=== PATIENT | female | born 1965 | race Caucasian/White ===

== ENCOUNTER 2017-08-22 09:40 | Emergency (ER) | payer OTHER ==
[~2017-08-22] VITALS: Ht 157.5 cm; Wt 45.4 kg
== END 2017-08-22 18:14 | disposition designated cancer center or children's hospital (05) ==
LOC: ER 09:40
DX: Q28.3 Other malformations of cerebral vessels (principal); R20.2 Paresthesia of skin; R51 Headache
CPT/HCPCS: 70450; 70552; A9579; 93005

== ENCOUNTER 2024-11-20 09:39 | Inpatient (IN) | payer OTHER ==
[~2024-11-20] VITALS: Ht 162.6 cm; Wt 54.4 kg
[2024-11-20] MEDS ORDERED: LIPITOR40 M1 (09:55)
[2024-11-20] MEDS ORDERED: REMERON15 M1 (09:55)
[2024-11-20] MEDS ORDERED: LEVALBUTEROL HCL 1.25 MG/3 ML SOLUTION IH ONE (10:08)
[2024-11-20] MEDS ORDERED: MAGNESIUM SULFATE 10,000 MG/20 ML VIAL IV ONE (10:15)
[2024-11-20] MEDS ORDERED: 0.9 % SODIUM CHLORIDE 1,000 ML IV SCH ×2 (10:15→18:00)
[2024-11-20] MEDS ORDERED: LEVALBUTEROL HCL 1.25 MG/3 ML SOLUTION IH SCH ×2 (10:15→17:55)
[2024-11-20] MEDS ORDERED: METHYLPREDNISOLONE SOD SUCC 125 MG VIAL IV ONE (10:15)
[2024-11-20] MEDS ORDERED: METHYLPREDNISOLONE SOD SUCC 125 MG VIAL ONE (10:24)
[2024-11-20 10:34] LABS: BASO % 0.8 % (0.1-1.2); EOS # 0.51 (0.04-0.54); EOS % 7.2 % (0.7-7.0); LYMPH # 1.60 (1.18-3.74); LYMPH % 22.4 % (19.3-53.1); MEAN PLATELET VOLUME 9.60 fl (9.4-12.4); MONO # 0.27 (0.24-0.82); MONO % 3.8 % (4.7-12.5); NEUT # 4.68 (1.56-6.13); NEUT % 65.7 % (34.0-71.1); RED CELL DISTRIBUTION WIDTH 13.4 % (11.6-14.4)
[2024-11-20] MEDS ORDERED: MAGNESIUM SULFATE IN WATER 2 GM/50 ML PIGGYBAG IV ONE (10:45)
[2024-11-20 10:56] LABS: ALT/SGPT 35.0 U/L (12-78); AST/SGOT 31.0 U/L (15-37); BILIRUBIN TOTAL 0.37 mg/dL (0.3-1.2); BUN CREA RATIO 15.0 (7.0-25.0); CREATININE SERUM 0.78 mg/dL (0.55-1.02); GFR 75.59; GLOBULINA 3.5 G/DL (2.4-3.5); GLUCOSE FASTING 112.0 mg/dL (65-100); OSMOLALITY SERUM 293.0 MOSM/KG (275-295)
[2024-11-20 10:58] LABS: COVID-19 AG NEGATIVE (NEGATIVE)
[2024-11-20 12:27] LABS: URINE APPEARANCE Clear; URINE BILIRRUBIN Negative (NEGATIVE); URINE BLOOD Moderate; URINE COLOR Yellow; URINE GLUCOSE Negative (NEGATIVE); URINE KETONE Negative (NEGATIVE); URINE LEUKOCYTE Small; URINE NITRATE Negative; URINE PROTEIN Negative (NEGATIVE); URINE UROBILINOGEN 0.2 E.U./dl
[2024-11-20 12:31] LABS: URINE BACTERIA 63.6 uL (0.0-1933); URINE EPITHELIAL CELLS 1.8 uL (0.0-38.8); URINE RBC 47.5 uL (0.0-20.8); URINE WBC 15.5 uL (0.0-23.2)
[2024-11-20 12:41] LABS: URINE CAST 0.29 uL (0.0-1.40)
[2024-11-20 14:13] LABS: ABG PH 7.389 (7.35-7.45); BICARBONATE 24.5 mmol/l (23-25)
[2024-11-20] MEDS ORDERED: IPRATROPIUM BROMIDE 0.5 MG/2.5 ML AMPUL.NEB IH ONE (14:15)
[2024-11-20] MEDS ORDERED: ALBUTEROL SULFATE 3 ML/2.5 MG AMPUL.NEB IH ONE (14:16)
[2024-11-20] MEDS ORDERED: IPRATROPIUM/ALBUTEROL SULFATE 3 ML AMPUL.NEB IH SCH (14:16)
[2024-11-20 14:35] LABS: ABG PO2 56.7 mmHg (80-100)
[2024-11-20 14:36] LABS: o2 32 %
[2024-11-20 14:37] LABS: ABG PH 7.418 (7.35-7.45)
[2024-11-20 14:38] LABS: ABG PO2 57.3 mmHg (80-100)
[2024-11-20 14:39] LABS: BICARBONATE 22.5 mmol/l (23-25)
[2024-11-20 14:40] LABS: o2 21 %
[2024-11-20] MEDS ORDERED: IPRATROPIUM BROMIDE 0.5 MG/2.5 ML AMPUL.NEB IH SCH (17:55)
[2024-11-20] MEDS ORDERED: MONTELUKAST SODIUM 10 MG TABLET PO SCH (17:56)
[2024-11-20] MEDS ORDERED: METHYLPREDNISOLONE SOD SUCC 40 MG VIAL IV SCH (17:56)
[2024-11-20] MEDS ORDERED: levoFLOXacin IN DEXTROSE 5 % 150 ML IV SCH (17:57)
[2024-11-20] MEDS ORDERED: ACETAMINOPHEN 500 MG GEL..CAP PO PRN (18:00)
[2024-11-20] MEDS ORDERED: MONTELUKAST SODIUM 10 MG TABLET PO ONE (18:10)
[2024-11-20] MEDS ORDERED: METHYLPREDNISOLONE SOD SUCC 40 MG VIAL ONE (18:11)
[2024-11-20] MEDS ORDERED: GUAIFEN/DEXTROMETHORPHAN/PE 10 ML BLIST.PACK PO ONE (18:11)
[2024-11-20 18:25] VITALS: BP 130/80
[2024-11-20] MEDS ORDERED: ACETAMINOPHEN 500 MG GEL..CAP PO ONE (18:37)
[2024-11-20 19:06] LABS: INR 1.01
[2024-11-20] MEDS ORDERED: GUAIFEN/DEXTROMETHORPHAN/PE 10 ML BLIST.PACK PO SCH (20:00)
[2024-11-20] MEDS ORDERED: TEMAZEPAM 15 MG CAPSULE PO SCH (21:00)
[2024-11-21] MEDS ORDERED: PIPERACILLIN/TAZOBACTAM SODIUM 3.375 GM VIAL IV ONE
[2024-11-21] MEDS ORDERED: METHYLPREDNISOLONE SOD SUCC 40 MG VIAL ONE (03:18)
[2024-11-21] MEDS ORDERED: GUAIFEN/DEXTROMETHORPHAN/PE 10 ML BLIST.PACK PO ONE (03:18)
[2024-11-21] MEDS ORDERED: LEVALBUTEROL HCL 1.25 MG/3 ML SOLUTION IH ONE (07:59)
[2024-11-21] MEDS ORDERED: IPRATROPIUM BROMIDE 0.5 MG/2.5 ML AMPUL.NEB IH ONE (08:00)
[2024-11-21 08:11] VITALS: BP 98/60; O2SAT 98
[2024-11-21] MEDS ORDERED: FAMOTIDINE/PF 20 MG in 0.9 % SODIUM CHLORIDE 8 ML IV PUSH SCH (09:00)
[2024-11-21] MEDS ORDERED: SERTRALINE HCL 100 MG TABLET PO SCH (09:00)
[2024-11-21] MEDS ORDERED: ENOXAPARIN SODIUM 40 MG/0.4 ML SYRINGE SUBCUTANEO SCH (09:00)
[2024-11-21 15:22] VITALS: BP 125/81; O2SAT 97
[2024-11-21] MEDS ORDERED: levoFLOXacin IN DEXTROSE 5 % 150 ML IV SCH (17:00)
[2024-11-21 18:17] VITALS: BP 140/85; O2SAT 100
[2024-11-21] MEDS ORDERED: BENZONATATE 100 MG CAPSULE PO SCH (20:29)
[2024-11-21] MEDS ORDERED: FLUTICASONE PROPIONATE 50 MCG SPRAY NASAL SCH (21:00)
[2024-11-21] MEDS ORDERED: LORATADINE 10 MG TABLET PO SCH (21:00)
[2024-11-21 21:57] VITALS: O2SAT 97
[2024-11-22] VITALS (9 sets, daily range): BP systolic 100–135; BP diastolic 60–80; O2SAT 90–99
[2024-11-22] MEDS ORDERED: LEVALBUTEROL HCL 1.25 MG/3 ML SOLUTION IH SCH (06:00)
[2024-11-22] MEDS ORDERED: IPRATROPIUM BROMIDE 0.5 MG/2.5 ML AMPUL.NEB IH SCH (06:00)
[2024-11-22 07:59] LABS: ALT/SGPT 26 U/L (12-78); AST/SGOT 19 U/L (15-37); BILIRUBIN TOTAL 0.20 mg/dL (0.3-1.2); BUN CREA RATIO 26 (7.0-25.0); CREATININE SERUM 0.76 mg/dL (0.55-1.02); GFR 77.89; GLOBULINA 2.4 G/DL (2.4-3.5); GLUCOSE FASTING 135 mg/dL (65-100); LDH 129 U/L (84-246); OSMOLALITY SERUM 290 MOSM/KG (275-295)
[2024-11-22 08:05] LABS: BASO % 0.1 % (0.1-1.2); EOS # 0.00 (0.04-0.54); EOS % 0.0 % (0.7-7.0); LYMPH # 0.85 (1.18-3.74); LYMPH % 6.0 % (19.3-53.1); MEAN PLATELET VOLUME 10.30 fl (9.4-12.4); MONO # 0.21 (0.24-0.82); MONO % 1.5 % (4.7-12.5); NEUT # 12.99 (1.56-6.13); NEUT % 91.8 % (34.0-71.1); RED CELL DISTRIBUTION WIDTH 13.8 % (11.6-14.4)
[2024-11-22] MEDS ORDERED: FAMOTIDINE/PF 20 MG/2 ML VIAL ONE (08:23)
[2024-11-22 10:12] LABS: MYCOPLASMA PNEUMONIAE IGM REACTIVE (NO REACTIVE)
[2024-11-22] MEDS ORDERED: IRON FUM,PS/FOLIC/BCOMP,C NO.9 1 CAP CAPSULE PO NR (10:45)
[2024-11-22] MEDS ORDERED: LACTOBACILLUS ACIDOPHILUS 1 CAP CAP PO SCH (17:00)
[2024-11-22] MEDS ORDERED: METHYLPREDNISOLONE SOD SUCC 40 MG VIAL IV SCH (17:00)
[2024-11-22] MEDS ORDERED: FLUTICASONE PROPIONATE 50 MCG SPRAY NASAL SCH (21:00)
[2024-11-23] VITALS (9 sets, daily range): BP systolic 102–121; BP diastolic 58–74; O2SAT 91–99
[2024-11-23] MEDS ORDERED: IRON FUM,PS/FOLIC/BCOMP,C NO.9 1 CAP CAPSULE PO SCH (09:00)
[2024-11-23] MEDS ORDERED: CLONAZEPAM 0.5 MG TABLET PO PRN (12:00)
[2024-11-24] VITALS (9 sets, daily range): BP systolic 110–114; BP diastolic 69–74; O2SAT 85–98
[2024-11-24] MEDS ORDERED: CLONAZEPAM 0.5 MG TABLET PO PRN (11:27)
[2024-11-24] MEDS ORDERED: CLONAZEPAM 0.5 MG TABLET PO ONE (11:30)
[2024-11-25] VITALS (7 sets, daily range): BP systolic 102–111; BP diastolic 64–73; O2SAT 91–96
[2024-11-25 06:06] LABS: BASO % 0.0 % (0.1-1.2); EOS # 0.00 (0.04-0.54); EOS % 0.0 % (0.7-7.0); LYMPH # 0.79 (1.18-3.74); LYMPH % 11.4 % (19.3-53.1); MEAN PLATELET VOLUME 10.90 fl (9.4-12.4); MONO # 0.21 (0.24-0.82); MONO % 3.0 % (4.7-12.5); NEUT # 5.93 (1.56-6.13); NEUT % 85.3 % (34.0-71.1); RED CELL DISTRIBUTION WIDTH 13.3 % (11.6-14.4)
[2024-11-25 07:02] LABS: BUN CREA RATIO 27.0 (7.0-25.0); CREATININE SERUM 0.71 mg/dL (0.55-1.02); GFR 84.26; GLUCOSE FASTING 131.0 mg/dL (65-100); OSMOLALITY SERUM 287.0 MOSM/KG (275-295)
[2024-11-25] MEDS ORDERED: IPRATROPIUM BROMIDE 0.5 MG/2.5 ML AMPUL.NEB IH SCH (21:00)
[2024-11-25] MEDS ORDERED: METHYLPREDNISOLONE SOD SUCC 40 MG VIAL IV SCH (21:00)
[2024-11-25] MEDS ORDERED: LEVALBUTEROL HCL 1.25 MG/3 ML SOLUTION IH SCH (21:00)
[2024-11-26 01:25] VITALS: O2SAT 94
[2024-11-26 02:14] VITALS: BP 115/68; O2SAT 97
[2024-11-26 05:35] VITALS: O2SAT 94
[2024-11-26 07:00] VITALS: BP 129/82; O2SAT 94
[2024-11-26 10:42] VITALS: O2SAT 95
[2024-11-26 14:07] VITALS: O2SAT 95
== END 2024-11-26 16:03 | disposition home or self-care (01) | DRG 194 ==
LOC: ER 09:39 → MEDJ 18:05 → SEC-K 18:05 → MEDJ 11-21 11:05
PROVIDERS: General Practice; Internal Medicine; Internal Medicine Infectious Disease; ADMIT Internal Medicine; ATTEND Internal Medicine
PROC: BW24ZZZ Computerized Tomography (CT Scan) of Chest and Abdomen (ICD-10-PCS; 2024-11-20)
PROC: 3E0F7GC Introduction of Other Therapeutic Substance into Respiratory Tract, Via Natural or Artificial Opening (ICD-10-PCS; 2024-11-20)
PROC: 4A12X4Z Monitoring of Cardiac Electrical Activity, External Approach (ICD-10-PCS; principal; 2024-11-21)
DX: J18.9 Pneumonia, unspecified organism (principal); J45.901 Unspecified asthma with (acute) exacerbation; A49.3 Mycoplasma infection, unspecified site; E78.5 Hyperlipidemia, unspecified; F32.9 Major depressive disorder, single episode, unspecified; J44.9 Chronic obstructive pulmonary disease, unspecified

== ENCOUNTER 2025-03-09 03:30 | Inpatient (IN) | payer OTHER ==
[~2025-03-09] VITALS: Ht 154.9 cm; Wt 44.9 kg
[~2025-03-09 03:30] MED LIST: LIPITOR40 M1; REMERON15 M1
[2025-03-09] MEDS ORDERED: EPINEPHRINE HCL/PF 1 MG/ML AMPUL ONE (03:43)
[2025-03-09] MEDS ORDERED: IPRATROPIUM BROMIDE 0.5 MG/2.5 ML AMPUL.NEB IH ONE ×5 (03:46→20:45)
[2025-03-09] MEDS ORDERED: MAGNESIUM SULFATE 50% 5,000 MG/10 ML VIAL ONE (03:47)
[2025-03-09] MEDS ORDERED: METHYLPREDNISOLONE SOD SUCC 125 MG VIAL ONE ×3 (03:47→23:11)
[2025-03-09] MEDS ORDERED: ALBUTEROL SULFATE 3 ML/2.5 MG AMPUL.NEB IH ONE ×5 (03:47→20:45)
--- NOTE | 2025-03-09 03:49 | NUR ---
PACIENTE ALERTA Y ORIENTADA X3. REFIERE VENIR POR DIFICULTAD AL RESPIRAR. PACIENTE [place] EN ORACIONES CORTAS Y CON DIFICULTAD. PACIENTE SATURANDO AL 80% AL MOMENTO DEL TRIAGE. SE UBICA PACIENTE A MONITOR CARDIACO Y OXIMETRIA DE PULSO CONTINUA EN AREA DE CRITICO. SE REALIZA EKG Y SE PRESENTA A DR GARCIA.
[2025-03-09] MEDS ORDERED: METHYLPREDNISOLONE SOD SUCC 125 MG VIAL IV STA (03:51)
[2025-03-09] MEDS ORDERED: MAGNESIUM SULFATE IN WATER 4GM/50ML PIGGYBAG IV STA (03:52)
[2025-03-09] MEDS ORDERED: 0.9 % SODIUM CHLORIDE 1,000 ML IV STA (03:53)
[2025-03-09] MEDS ORDERED: EPINEphrine 10 ML DISP.SYRIN IJ STA (03:57)
[2025-03-09] MEDS ORDERED: ALBUTEROL SULFATE 3 ML/2.5 MG AMPUL.NEB IH SCH ×3 (04:00→09:00)
[2025-03-09] MEDS ORDERED: IPRATROPIUM BROMIDE 0.5 MG/2.5 ML AMPUL.NEB IH SCH ×2 (04:00→09:00)
--- NOTE | 2025-03-09 04:02 | NUR ---
INMEDIATAMENTE SE CANALIZA PACIENTE X2 EN BRAZO DERECHO # 18 SE MARILY EN S/L. SE ADMINISTRA MEDICAMENTOS WILLEM ORDEN MEDICA. SE SELAM MUESTRAS DE LABORATORIOS Y SE ENVIAN. PENDIENTE A PLACA Y ABGS. SE NOTIFICAN TERAPIAS CON CARACTER DE URGENCIA A MR. CURIEL.
[2025-03-09 04:28] LABS: BASO % 0.5 % (0.1-1.2); EOS # 0.81 (0.04-0.54); EOS % 6.7 % (0.7-7.0); LYMPH # 4.88 (1.18-3.74); LYMPH % 40.2 % (19.3-53.1); MEAN PLATELET VOLUME 10.60 fl (9.4-12.4); MONO # 0.69 (0.24-0.82); MONO % 5.7 % (4.7-12.5); NEUT # 5.68 (1.56-6.13); NEUT % 46.7 % (34.0-71.1); RED CELL DISTRIBUTION WIDTH 13.1 % (11.6-14.4)
[2025-03-09 04:57] LABS: ALT/SGPT 19.0 U/L (12-78); AST/SGOT 36.0 U/L (15-37); BILIRUBIN TOTAL 0.33 mg/dL (0.3-1.2); BUN CREA RATIO 13.0 (7.0-25.0); CREATININE SERUM 0.71 mg/dL (0.55-1.02); GFR 84.26; GLOBULINA 3.1 G/DL (2.4-3.5); GLUCOSE FASTING 124.0 mg/dL (65-100); OSMOLALITY SERUM 291.0 MOSM/KG (275-295)
[2025-03-09 05:46] LABS: COVID-19 AG NEGATIVE (NEGATIVE)
--- NOTE | 2025-03-09 07:57 | NUR ---
SE RECIBE PACIENTE EN ICU#2 CAMA #2. SE OFRECE DANIE PARA EVALUAR CONDICION. PACIENTE ALERTA Y ORIENTADA X 3. PTE CONECTADA A MONITOR CARDIACO CON SATURO- METRIA Y VENTURY MASK. DOS VENOPUNCIONES PATENTES EN BRAZO DERECHO, AREAS LIBRES DE EDEMA Y/O ERITEMA BAJANDO .9NSS A 50 MLS/HR POR MAQUINA DE IV PUMP. ORINANDO DE FORMA ESPONTANEA, PARA LO CUAL SE ASISTE Y AL MOMENTO LE BAJA SATURACION A 86% LA CUAL TARDA 5MIN EN VOLVER A 96%. SE MIDEN Y DOCUMENTAN S/V BARANDAS ELEVADAS POR SANDRA SEGURIDAD. SE MONITOREA POR CAMBIOS SIGNIFICATIVOS.
[2025-03-09] MEDS ORDERED: METHYLPREDNISOLONE SOD SUCC 125 MG VIAL IV SCH (13:00)
--- NOTE | 2025-03-09 15:28 | NUR ---
SE RECIBE PACIENTE FEMENINA DE 59YRS EN CAMA CON BARANDAS ELEVADAS Y TIMBRE ACCESIBLE. AL MOMENTO PACIENTEN EN ICU-2 CAMA #2, EN ESPERA DE CONSULTA CON IM DR TRINIDAD. PACIENTE ALERTA Y ORIENTADA X3 SE OBSERVA CON VENTURY MASK AL 40% TOLERANDO AL MOMENTO, CABECERA A 45 GRADOS. SE MIDEN S/V Y SE DOCUMENTAN, LOS MISMOS SE OBSERVAN DENTRO DE PARAMETROS ESTABLES. PACIENTE CANALIZADA EN RT ARM X2 #18 POR DONDE BAJAN 1000 ML DE 0.9NSS A KVO Y OTRA CANALIZACION EN SALINE LOCK. AL MOMENTO AMBAS CANALIZACIONES SABINA DE EDEMA O SIGNOS DE INFILTRACION. PACIENTE AL MOMENTO SE OBSERVA DORMIDA, RESPONDE A ESTIMULOS VERBALES, REFIERE NO DOLOR. SE MANTIENE EN MONITOREO POR CAMBIOS SIGNIFICATIVOS. AL MOMENTO PACIENTE CONECTADA A MONITOR CARDIACO Y IV FLUIDS BAJANDO POR IV PUMP.
[2025-03-09 18:00] VITALS: BP 111/68; O2SAT 100
[2025-03-09] MEDS ORDERED: ACETAMINOPHEN 325 MG TABLET PO PRN (18:00)
[2025-03-09] MEDS ORDERED: METHYLPREDNISOLONE SOD SUCC 40 MG VIAL IV SCH (18:00)
[2025-03-09] MEDS ORDERED: GUAIFENESIN 100 MG/5 ML BLIST.PACK PO SCH (18:00)
[2025-03-09] MEDS ORDERED: ONDANSETRON HCL 4 MG in 0.9 % SODIUM CHLORIDE 50 ML IV PRN (18:00)
[2025-03-09] MEDS ORDERED: GUAIFENESIN 200 MG/10 ML BLIST.PACK PO ONE ×2 (19:11→23:11)
[2025-03-09] MEDS ORDERED: ACETAMINOPHEN 325 MG TABLET PO ONE (19:11)
[2025-03-09 19:20] VITALS: BP 111/68; BP 139/89; O2SAT 93
[2025-03-09] MEDS ORDERED: RESTORIL30 M1 PO (22:08)
[2025-03-09] MEDS ORDERED: CLONAZEPAM0.5 MG PO (22:10)
[2025-03-09 23:25] VITALS: BP 128/70; O2SAT 99
[2025-03-10 02:00] VITALS: BP 97/58; O2SAT 97
[2025-03-10 07:26] VITALS: BP 110/52; O2SAT 95
[2025-03-10] MEDS ORDERED: METHYLPREDNISOLONE SOD SUCC 125 MG VIAL IV SCH ×2 (09:00→12:00)
[2025-03-10] MEDS ORDERED: LORATADINE 10 MG TABLET PO SCH (09:00)
[2025-03-10] MEDS ORDERED: CEFTRIAXONE SODIUM 2,000 MG in 0.9 % SODIUM CHLORIDE 100 ML IV SCH (09:00)
[2025-03-10] MEDS ORDERED: SERTRALINE HCL 100 MG TABLET PO SCH (09:00)
[2025-03-10] MEDS ORDERED: AZITHROMYCIN 500 MG VIAL IV SCH (09:00)
[2025-03-10] MEDS ORDERED: METHYLPREDNISOLONE SOD SUCC 40 MG VIAL IV SCH ×3 (11:29)
[2025-03-10] MEDS ORDERED: PANTOPRAZOLE SODIUM 40 MG/VIAL VIAL IV SCH (12:00)
[2025-03-10] MEDS ORDERED: IPRATROPIUM/ALBUTEROL SULFATE 3 ML AMPUL.NEB IH SCH (13:00)
[2025-03-10 14:21] VITALS: BP 132/73; O2SAT 95
[2025-03-10 15:18] VITALS: BP 119/73; O2SAT 100
[2025-03-10 21:34] VITALS: BP 136/78; O2SAT 95
[2025-03-11 03:12] VITALS: BP 107/64; O2SAT 97
[2025-03-11 06:17] LABS: BASO % 0.1 % (0.1-1.2); EOS # 0.00 (0.04-0.54); EOS % 0.0 % (0.7-7.0); LYMPH # 0.91 (1.18-3.74); LYMPH % 5.3 % (19.3-53.1); MEAN PLATELET VOLUME 10.40 fl (9.4-12.4); MONO # 0.41 (0.24-0.82); MONO % 2.4 % (4.7-12.5); NEUT # 15.81 (1.56-6.13); NEUT % 91.6 % (34.0-71.1); RED CELL DISTRIBUTION WIDTH 13.6 % (11.6-14.4)
[2025-03-11 06:43] LABS: ALT/SGPT 23 U/L (12-78); AST/SGOT 29 U/L (15-37); BILIRUBIN TOTAL 0.20 mg/dL (0.3-1.2); BUN CREA RATIO 43 (7.0-25.0); CREATININE SERUM 0.63 mg/dL (0.55-1.02); GFR 96.72; GLOBULINA 2.5 G/DL (2.4-3.5); GLUCOSE FASTING 142 mg/dL (65-100); OSMOLALITY SERUM 296 MOSM/KG (275-295)
[2025-03-11 09:51] VITALS: BP 127/75; O2SAT 95
[2025-03-11 18:46] VITALS: BP 141/86
[2025-03-12] MEDS ORDERED: METHYLPREDNISOLONE SOD SUCC 40 MG VIAL IV SCH (01:00)
[2025-03-12 03:12] VITALS: BP 122/70; O2SAT 94
[2025-03-12 06:27] LABS: BASO % 0.1 % (0.1-1.2); EOS # 0.00 (0.04-0.54); EOS % 0.0 % (0.7-7.0); LYMPH # 0.84 (1.18-3.74); LYMPH % 6.9 % (19.3-53.1); MEAN PLATELET VOLUME 10.40 fl (9.4-12.4); MONO # 0.35 (0.24-0.82); MONO % 2.9 % (4.7-12.5); NEUT # 10.90 (1.56-6.13); NEUT % 89.1 % (34.0-71.1); RED CELL DISTRIBUTION WIDTH 13.4 % (11.6-14.4)
[2025-03-12] MEDS ORDERED: AZITHROMYCIN 500 MG VIAL IV ONE (08:19)
[2025-03-12 08:49] VITALS: BP 143/83; O2SAT 96
[2025-03-12] MEDS ORDERED: PANTOPRAZOLE SODIUM 40 MG TABLET.DR PO SCH (09:00)
== END 2025-03-12 12:01 | disposition home or self-care (01) | DRG 191 ==
LOC: ER 03:30 → ICU-2 19:12 → MEDI 19:12 → SEC-K 19:12 → MEDI 03-10 17:30
PROVIDERS: General Practice; Internal Medicine Infectious Disease; ADMIT Internal Medicine; ATTEND Internal Medicine
PROC: BB24ZZZ Computerized Tomography (CT Scan) of Bilateral Lungs (ICD-10-PCS; principal; 2025-03-09)
PROC: 3E0F7GC Introduction of Other Therapeutic Substance into Respiratory Tract, Via Natural or Artificial Opening (ICD-10-PCS; 2025-03-09)
DX: J44.1 Chronic obstructive pulmonary disease with (acute) exacerbation (principal); J45.41 Moderate persistent asthma with (acute) exacerbation; R09.02 Hypoxemia; Z72.0 Tobacco use